=== PATIENT | female | born 1970 | race African-American/Black ===

== ENCOUNTER 2019-11-28 08:55 | Outpatient (CLI) | payer OTHER, SELFPAY ==
--- NOTE | ~2019-11-28 | CT_ITS ---
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 TECHNIQUE: Computed tomography (CT) of the chest, abdomen, and pelvis was performed with 100 mL Omnip aque-350 intravenous contrast. Automated exposure control and iterative reconstruction technique were employed. The dose-length product was 1127.92 mGy-cm. COMPARISON: 05/11/2019 FINDINGS: CHEST CT: Left subclavian central venous port catheter with distal tip at the superior cavoatrial junction. Min imal linear discoid atelectasis in the left lower lobe and negligible dependent atelectasis along the posterior margin of the right lower lobe. Lungs are otherwise clear with no pulmonary nodules, infil trates, pulmonary edema or pleural effusion. Heart size is normal. No pericardial or pleural effusion . Heart size remains normal. No pericardial effusion. 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 No pathologically enlarged thoracic lymphadenopathy. Unchanged likely benign 8 m m right thyroid nodule. Mild thoracic spondylosis. ABDOMEN/PELVIS CT: Liver, gallbladder, spleen, pancreas, bilateral adrenal glands and kidneys are normal. Normal appendi x. There are few scattered colonic diverticula without adjacent inflammatory change to suggest divert iculitis. Small bowel is normal. Retroverted fibroid uterus. Bladder is normal. No free intraperitone al gas or fluid. No pathologically enlarged abdominal or pelvic lymphadenopathy. Small bilateral fat- containing inguinal hernias. IMPRESSION: 1. 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 2. No evident metastatic disease in the chest, abdomen or pelvis. Reviewed, dictated and finalized at location A. REPRESENTATIVE IMPRESSION: 1. Unchanged soft tissue density in the anterior mediastinum likely representin g rebound thymic hyperplasia. 2. No evident metastatic disease in the chest, abdomen or pelvis.
== END 2019-11-28 08:56 | disposition home or self-care (01) ==
LOC: ANHIMG 09:02
PROVIDERS: PCP Internal Medicine Hematology & Oncology; Visit Provider Internal Medicine Hematology & Oncology
DX: I42.7 Cardiomyopathy due to drug and external agent (principal); T45.1X5A Adverse effect of antineoplastic and immunosuppressive drugs, initial encounter; C50.411 Malignant neoplasm of upper-outer quadrant of right female breast; Z17.0 Estrogen receptor positive status [ER+]
CPT/HCPCS: 71260; 74177; Q9967

== ENCOUNTER 2020-03-13 09:56 | Outpatient (CLI) | payer OTHER, SELFPAY ==
--- NOTE | 2020-03-13 | ECHO_ITS ---
Patient Info Name: Viky Suresh Age: 50 years : 1970 Gender: Female Ht: 63 in Wt: 218 lbs BSA: 2.15 m2 HR: 65 bpm BP: 146 / 89 mmHg Heart Rhythm: Sinus Rhythm Technical Quality: Good Exam Date: 03/13/2020 10:18 AM Exam Location: [facility] Patient Status: Outpatient Admit Date: 03/13/2020 Staff Ordering Physician: Italo, Charles Chandler MD Teletypewriter Operator: Stacy Erazo RDCS Attending Provider: Desmond, Charles Chandler MD Referring Physician: Italo AHUMADA; Exam Type: CA echo doppler color flow Study Info Indications - MALIGNANT NEOPLASM BREAST Complete two-dimensional, color flow and Doppler transthoracic echocardiogram is performed. Summary 1. Left ventricular chamber dimension is normal. 2. Biplane EF is measured at 62%. 3. There is trace mitral valve regurgitation. 4. There is mild tricuspid valve regurgitation. Left Ventricle Left ventricular chamber dimension is normal. Left ventricular systolic function is normal, estimated at 55-60%. The left ventricular diastolic function is normal. Biplane EF is measured at 62%. Right Ventricle Right ventricular chamber dimension is normal. Left Atria Left atrial chamber dimension is normal. Right Atria Right atrial chamber dimension is normal. Aortic Valve The aortic valve is normal. Pulmonic Valve The pulmonic valve is normal. Mitral Valve The mitral valve has normal leaflets. There is trace mitral valve regurgitation. Tricuspid Valve The tricuspid valve leaflets are normal. There is mild tricuspid valve regurgitation. Pericardium/Pleural The pericardium appears normal. Aorta The aortic root size at the sinus of Valsalva is normal. Left Ventricular Outflow Tract Name Value Normal LVOT 2D LVOT Diameter 2.0 cm LVOT Doppler LVOT Peak Gradient 5 mmHg LVOT Mean Gradient 3 mmHg LVOT VTI 21 cm LVOT VTI/AV VTI Ratio 0.7 LVOT Stroke Volume 65 ml LVOT CO 14.5 l/min LVOT CI 6.7 l/min/m2 Pulmonic Valve Name Value Normal PV Doppler PV Peak Gradient 3 mmHg PV Regurgitation Doppler IL Peak End Diastolic Velocity 98 cm/s Mitral Valve Name Value Normal MV Doppler MV Decel Yellow Medicine 216 cm/s2 MV PHT 71 ms
== END 2020-03-13 09:57 | disposition home or self-care (01) ==
LOC: ANHCARD 09:58
PROVIDERS: PCP Internal Medicine Hematology & Oncology; Visit Provider Internal Medicine Hematology & Oncology
DX: C50.411 Malignant neoplasm of upper-outer quadrant of right female breast (principal); Z17.0 Estrogen receptor positive status [ER+]; I08.1 Rheumatic disorders of both mitral and tricuspid valves
CPT/HCPCS: 93306